=== PATIENT | male | born 1995 | race Caucasian/White ===

== ENCOUNTER 2022-04-09 10:22 | Emergency (ER) | payer BC ==
[2022-04-09 10:43] VITALS: BP 111/55; PULSE 81; RESP 17; TEMP 98.7; BMI 25.0
[2022-04-09] MEDS ORDERED: IBUPROFEN 600 MG TABLET (FP) PO ONE ×2 (11:58→11:59)
== END 2022-04-09 13:06 | disposition home or self-care (01) ==
LOC: JERFT 10:22
DX: S02.2XXA Fracture of nasal bones, initial encounter for closed fracture (principal)
CPT/HCPCS: 70160-TC-FY; 99284-25

== ENCOUNTER 2022-04-21 04:04 | Day surgery (SDC) | payer BC ==
[2022-04-16 09:52] VITALS: BMI 25.0
[2022-04-21] MEDS ORDERED: BENZOIN/ALOE VERA/STORAX/TOLU 58 ML BOTTLE ONE (07:34)
[2022-04-21] MEDS ORDERED: SUCCINYLCHOLINE CHLORIDE 200 MG/10 ML SYRINGE ONE (07:42)
[2022-04-21] MEDS ORDERED: PROPOFOL 40 ML ONE (07:42)
[2022-04-21] MEDS ORDERED: MIDAZOLAM HCL 2 MG/2 ML SINGLE DOSE VIAL ONE (07:42)
[2022-04-21] MEDS ORDERED: DEXAMETHASONE SOD PHOSPHATE 4 MG/1 ML VIAL ONE (07:52)
[2022-04-21] MEDS ORDERED: ONDANSETRON 4 MG/2 ML VIAL ONE (07:52)
[2022-04-21] MEDS ORDERED: COCAINE HCL 4% TOPICAL SOLUTION 4 ML BOTTLE TP ONE ×2 (07:58→08:01)
[2022-04-21] MEDS ORDERED: oxyCODONE HCL 5 MG TABLET PO PRN (08:31)
[2022-04-21] MEDS ORDERED: ONDANSETRON 4 MG/2 ML VIAL IVPUSH PRN (08:31)
[2022-04-21] MEDS ORDERED: LACTATED RINGERS SOLUTION 1,000 ML IV SCH (08:45)
[2022-04-21 10:37] VITALS: BP 99/40; PULSE 65; RESP 16; TEMP 98
== END 2022-04-21 10:35 | disposition home or self-care (01) ==
LOC: JASU-SURG 04:04
PROVIDERS: ATTEND Otolaryngology
PROC: 0NSBXZZ Reposition Nasal Bone, External Approach (ICD-10-PCS; principal; 2022-04-21 08:00)
DX: S02.2XXA Fracture of nasal bones, initial encounter for closed fracture (principal); X58.XXXA Exposure to other specified factors, initial encounter; Y93.9 Activity, unspecified; Y92.9 Unspecified place or not applicable; Y99.9 Unspecified external cause status
CPT/HCPCS: 94760